=== PATIENT | female | born 1960 | race Caucasian/White ===

== ENCOUNTER 2017-09-12 14:54 | Emergency (ER) | payer MEDICARE, MEDICAID ==
[~2017-09-12] VITALS: Ht 160 cm; Wt 62.0 kg
[~2017-09-12 14:54] MED LIST: SERO100T PO; SUBO8MIS SL; ZITH250T PO; ZOFR4TAB3 SL
[2017-09-12 15:07] VITALS: BP 125/75; PULSE 84; RESP 17; TEMP 97.8; O2SAT 98
[2017-09-12] MEDS ORDERED: KLON2TAB PO (15:08)
[2017-09-12] MEDS ORDERED: SUBO8MIS SL (15:12)
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
== END 2017-09-12 16:08 | disposition left against medical advice (07) ==
LOC: NEPC 14:54
DX: T42.4X1A Poisoning by benzodiazepines, accidental (unintentional), initial encounter (principal); T50.7X1A Poisoning by analeptics and opioid receptor antagonists, accidental (unintentional), initial encounter; F31.9 Bipolar disorder, unspecified; J44.9 Chronic obstructive pulmonary disease, unspecified; I10 Essential (primary) hypertension; K21.9 Gastro-esophageal reflux disease without esophagitis; R56.9 Unspecified convulsions; F41.9 Anxiety disorder, unspecified; Z86.19 Personal history of other infectious and parasitic diseases
CPT/HCPCS: 99284